=== PATIENT | male | born 1960 ===

== ENCOUNTER 2020-06-20 07:40 | Day surgery (SDC) | payer BC ==
[~2020-06-20] VITALS: Ht 188 cm; Wt 92.4 kg
[2020-06-20 09:12] VITALS: BP 119/88; PULSE 64; TEMP 97.5
[2020-06-20] MEDS ORDERED: HCTZ 25MG TAB25 MG PO (09:26)
[2020-06-20] MEDS ORDERED: ZYRTEC 10MG10 MG PO (09:27)
[2020-06-20 10:00] VITALS: BP 112/79; PULSE 62; TEMP 97.3
[2020-06-20 10:15] VITALS: BP 106/84; PULSE 63
[2020-06-20 10:30] VITALS: BP 109/78; PULSE 62
[2020-06-20 10:45] VITALS: BP 113/73; PULSE 67
--- NOTE | 2020-06-20 11:19 | NUR ---
PT RETURNED FROM THE ENDO PROCEDURE ROOM BACK INTO BAY#4. PT WAS AWAKE AND TALKING. DENIES PAIN OR NAUSEA AT THIS TIME. REQUESTED BLACK COFFEE AND BLUEBERRY MUFFIN. WILL CONT TON MONITOR PROGRESS.
--- NOTE | 2020-06-20 11:25 | NUR ---
PT IS TOLERATING FOOD AND FLUIDS WITHOUT DIFFICULTY. DENIES NAUSEA OR PAIN AT THIS TIME. IV CONITUES TO RUN LR PATENT INTO RIGHT FA. WILL CONTINUE TO MONITOR PROGRESS.
--- NOTE | 2020-06-20 11:29 | NUR ---
PT CONTINUES TO DENY NAUSEA OR PAIN. TOLERATING FOOD AND FLUIDS. TEXTING WITH HIS AND IS READY FOR DISCHARGE. IV WAS DC'D, PT TOLERATED WELL. DISMISSAL INSTRUCTIONS WERE GIVEN AND PT VOICES UNDERSTANDING AND DENIES QUESTIONS. PT WAS TAKEN TO THE ADMISSIONS DEPT ENTRANCE FOR DISCHARGE PER WC. PT WAS BEING DRIVEN HOME BY HIS , ANGELICA IN THEIR FAMILY VEHICLE.
== END 2020-06-20 10:50 | disposition home or self-care (01) ==
LOC: SDCO 07:40
DX: D12.2 Benign neoplasm of ascending colon (principal); D12.3 Benign neoplasm of transverse colon; K64.0 First degree hemorrhoids; I10 Essential (primary) hypertension; Z20.822 Contact with and (suspected) exposure to COVID-19; Z79.899 Other long term (current) drug therapy; Z85.828 Personal history of other malignant neoplasm of skin; Z88.0 Allergy status to penicillin
CPT/HCPCS: J2704